=== PATIENT | female | born 1970 | race Two or more races ===

== ENCOUNTER 2025-05-30 16:39 | Emergency (ER) | payer BC ==
[~2025-05-30] VITALS: Ht 147.3 cm; Wt 74.8 kg
[2025-05-30 18:12] LABS: PLATELET COUNT (AUTO) 324 K/uL (150-450); RED BLOOD CELL COUNT(AUTO) 4.61 MIL/uL (4.0-5.2); RED CELL DISTRIBUTION WIDTH 14.1 % (11.5-15.0); WHITE BLOOD COUNT (AUTO) 7.7 K/uL (4.3-11.0)
[2025-05-30 18:21] LABS: CALCIUM, SERUM 9.3 mg/dL (8.5-10.1); CREATININE 0.8 mg/dL (0.6-1.3); SODIUM SERUM 140 mmol/L (136-145); UREA NITROGEN, BLOOD 26 mg/dL (7-18)
[2025-05-30 18:31] LABS: INR 0.97 (0.91-1.10)
[2025-05-30] MEDS ORDERED: AMLO-213 PO (18:46)
[2025-05-30 19:13] VITALS: BP 143/91; TEMP 98.3; O2SAT 99
== END 2025-05-30 19:13 | disposition home or self-care (01) ==
LOC: ER 17:06
DX: R07.89 Other chest pain (principal); I10 Essential (primary) hypertension; E86.0 Dehydration
CPT/HCPCS: 36415; 71045-TC; 80048-TC; 84484-TC; 85025-TC; 85730-TC